=== PATIENT | male | born 1955 | race African-American/Black ===

== ENCOUNTER 2016-02-21 09:48 | Observation (INO) | payer OTHER ==
[~2016-02-21] VITALS: Ht 170.2 cm; Wt 85.2 kg
[2016-02-21] VITALS (29 sets, daily range): BP systolic 119–193; BP diastolic 66–92; PULSE 52–109; RESP 16–21; Ht 170.2 cm; Wt 85.2 kg
[2016-02-21] MEDS ORDERED: CEFAZOLIN 2 GM/50 ML (PMX) 50 ML IVPB ONE (11:00)
[2016-02-21] MEDS ORDERED: SOD CHLORIDE 0.9% 1,000 ML IV SCH (11:00)
[2016-02-21] MEDS ORDERED: AMLO-147 PO (11:54)
[2016-02-21] MEDS ORDERED: FINA5TAB4 PO (11:54)
[2016-02-21] MEDS ORDERED: LISI40TA9 PO (11:54)
[2016-02-21 12:07] LABS: BASOPHILS % 0.2 % (0.0-2.0); EOSINOPHILS # 0.1 10^3/ul (0.0-0.5); EOSINOPHILS % 0.8 % (0.0-7.0); HEMATOCRIT 44.6 % (42.0-52.0); HEMOGLOBIN 14.6 g/dl (14.0-18.0); LYMPHOCYTES # 1.5 10^3/ul (0.8-2.9); LYMPHOCYTES % 11.5 % (15.0-51.0); MEAN CORPUSCULAR HEMOGLOBIN 24.8 pg (29.0-33.0); MEAN CORPUSCULAR HGB CONC 32.9 g/dl (32.0-37.0); MEAN CORPUSCULAR VOLUME 75.6 fl (82.0-101.0); MEAN PLATELET VOLUME 9.3 fl (7.4-10.4); MONOCYTE # 1.1 10^3/ul (0.3-0.9); MONOCYTES % 8.3 % (0.0-11.0); NEUTROPHIL # 10.1 10^3/ul (1.6-7.5); NEUTROPHILS % 79.2 % (39.0-77.0); PLATELET COUNT 227 10^3/UL (140-440); RED CELL DISTRIBUTION WIDTH 15.6 % (11.5-14.5); UNCORRECTED WBC 12.7 10^3/ul (4.8-10.8); WHITE BLOOD COUNT 12.7 10^3/ul (4.8-10.8)
[2016-02-21 12:14] LABS: CONDITION 1; LH ANALYZER COMMENTS 1
[2016-02-21 12:19] LABS: INR 0.97; PROTIME 12.9 Sec (12.2-14.2)
[2016-02-21 12:20] LABS: PARTIAL THROMBOPLASTIN TIME 29.3 Sec (25.0-35.0)
[2016-02-21 12:24] LABS: CALCIUM 9.2 mg/dl (8.4-10.2); POTASSIUM 3.5 mmol/L (3.5-5.1)
--- NOTE | 2016-02-21 12:43 | RADRPT ---
PROCEDURE: Chest x-ray CLINICAL INDICATION: Preop TECHNIQUE: Chest single view COMPARISON: None FINDINGS: The heart is normal in size. The pulmonary vessels are normal in caliber. The lungs are clear. Th e costophrenic angles are sharp. The visualized bony thorax is unremarkable. IMPRESSION: No acute cardiopulmonary disease. RPTAT: HH .Arron Lance MD, Date Time Electronically viewed and signed by .Arron Lance MD, MD on 02/21/2016 12:43 .W/
[2016-02-21] MEDS ORDERED: FENTAnyl 50 MCG/ML VIAL ONE (13:32)
[2016-02-21] MEDS ORDERED: MIDAZOLAM 1 MG/ML 2 ML INJ ONE (13:32)
[2016-02-21] MEDS ORDERED: PROPOFOL 20 ML ONE (13:32)
[2016-02-21] MEDS ORDERED: BUPIVACAINE 0.25%/EPI (SDV) 30 ML INJ ONE (13:46)
[2016-02-21] MEDS ORDERED: BUPIVACAINE 0.25% (MPF) 30 ML INJ ONE (13:47)
[2016-02-21] MEDS ORDERED: LIDOCAINE 2% (SDV) 5 ML INJ ONE (14:02)
[2016-02-21] MEDS ORDERED: CEFAZOLIN 1 GM INJ ONE (14:06)
[2016-02-21] MEDS ORDERED: DEXAMETHASONE 4 MG/ML 1 ML INJ ONE (14:16)
[2016-02-21] MEDS ORDERED: ONDANSETRON 4 MG INJ ONE (14:17)
[2016-02-21] MEDS: LACTATED RINGER'S 1,000 ML IV SCH ×3 (14:32→17:20)
--- NOTE | 2016-02-21 14:57 | OPR ---
DATE OF OPERATION: 02/21/2016 INDICATION: This is a 60-year-old male with a right arm mass. He requests surgical excision. The risks, alternatives, benefits, and personnel were discussed with the patient. The patient expressed understanding and consented to the operation. PREOPERATIVE DIAGNOSIS: Right arm mass. POSTOPERATIVE DIAGNOSIS: Right arm mass. OPERATION PERFORMED: 1. Excision of right arm mass with a 10-cm size incision and 10 x 15-cm size mass. 2. Localized adjacent tissue transfer with the use of skin flaps. SURGEON: Carmelo Luna MD SPECIMEN: Right arm mass. COMPLICATIONS: None. ANESTHESIA: General. PROCEDURE: The patient was taken to the OR, prepped and draped in the usual sterile fashion. A paty gical timeout was performed. IV antibiotics were given. A transverse incision was made with a 15 b lade over the right arm mass. Dissection cautery was carried down to the mass and circumferentially excised. There was good hemostasis. Due to the large tissue defect, localized adjacent tissue tra nsfer with the use of skin flaps was performed. Multilayer closure with interrupted 3-0 Vicryl and skin torsten. Local anesthesia was injected. Dry dressings were applied. Dictated By: CARMELO WALLER/OSWALDO Conf#: [id number] DID#: [id number]
[2016-02-21 15:44] LABS: BASOPHILS % 0.2 % (0.0-2.0); EOSINOPHILS # 0.1 10^3/ul (0.0-0.5); EOSINOPHILS % 0.6 % (0.0-7.0); HEMATOCRIT 43.4 % (42.0-52.0); HEMOGLOBIN 14.1 g/dl (14.0-18.0); LYMPHOCYTES # 1.1 10^3/ul (0.8-2.9); LYMPHOCYTES % 8.1 % (15.0-51.0); MEAN CORPUSCULAR HEMOGLOBIN 24.7 pg (29.0-33.0); MEAN CORPUSCULAR HGB CONC 32.6 g/dl (32.0-37.0); MEAN CORPUSCULAR VOLUME 75.8 fl (82.0-101.0); MEAN PLATELET VOLUME 9.3 fl (7.4-10.4); MONOCYTE # 0.9 10^3/ul (0.3-0.9); MONOCYTES % 6.3 % (0.0-11.0); NEUTROPHIL # 12.1 10^3/ul (1.6-7.5); NEUTROPHILS % 84.8 % (39.0-77.0); PLATELET COUNT 226 10^3/UL (140-440); RED BLOOD COUNT 5.72 10^6/ul (4.70-6.10); RED CELL DISTRIBUTION WIDTH 15.8 % (11.5-14.5); UNCORRECTED WBC 14.3 10^3/ul (4.8-10.8); WHITE BLOOD COUNT 14.3 10^3/ul (4.8-10.8)
[2016-02-21 15:55] LABS: ALBUMIN 3.9 g/dl (3.3-4.9)
[2016-02-21 15:56] LABS: POTASSIUM 3.7 mmol/L (3.5-5.1)
[2016-02-21 15:57] LABS: BILIRUBIN,INDIRECT 0.3 mg/dl (0-1.1); BILIRUBIN,TOTAL 0.3 mg/dl (0.2-1.3)
[2016-02-21 15:58] LABS: ALBUMIN/GLOBULIN RATIO 1.34; CREATININE 0.96 mg/dl (0.61-1.24); TOTAL PROTEIN 6.8 g/dl (6.1-8.1)
[2016-02-21 15:59] LABS: CALCIUM 8.7 mg/dl (8.4-10.2)
[2016-02-21 16:13] LABS: CONDITION 1; LH ANALYZER COMMENTS 1
[2016-02-21] MEDS ORDERED: POTASSIUM CHLORIDE (SR) 20 MEQ TAB PO STA (17:47)
--- NOTE | 2016-02-21 18:54 | CONS ---
DATE OF ADMISSION: 02/21/2016 DATE OF CONSULTATION: 02/21/2016 REASON FOR CONSULTATION: PVCs in the pattern of bigeminy/cardiac arrhythmia, assess for acute coron mary syndrome. REQUESTING PHYSICIAN: Dr. Kline from the surgery department and Dr. Jl Thapa from anesthesiolo gy department as well as Dr. Lincoln internal medicine. HISTORY OF PRESENT ILLNESS: Mr. Carpenter is a very pleasant 60-year-old male with a history of hyperte nsion on lisinopril and Norvasc who presented for and underwent excision of lipoma on his right arm which was growing in size. Post procedure, I was contacted by anesthesiologist who had stated that the patient at time of induction of anesthesia had the onset of bigeminy requiring lidocaine to supp ress this arrhythmia and then after the procedure continued to have recurrent PVCs. At this time, woodrow adames denies chest pain, shortness of breath and has mild pain in his surgical site. PAST MEDICAL HISTORY: As above in HPI. The patient also has a history of BPH and prostate CA. MEDICATIONS PRIOR TO ADMISSION: 1. Lisinopril 40 mg daily. 2. Norvasc 10 mg daily. 3. Proscar 5 mg daily. MEDICATIONS CURRENTLY IN HOSPITAL: 1. Heparin 5000 subcutaneous q.8h. 2. Morphine p.r.n. 3. Lactated Ringer's. ALLERGIES: NO KNOWN DRUG ALLERGIES. SOCIAL HISTORY: Very remote tobacco. Quit greater than 20 years. No ETOH, no illicit drug use. FAMILY HISTORY: No history of sudden cardiac or early CAD. REVIEW OF SYSTEMS: As above in HPI. CONSTITUTIONAL: No fevers, chills. PULMONARY: No current shortness of breath. CARDIOVASCULAR: No current chest pain. Positive PVCs. GASTROINTESTINAL: No vomiting. GENITOURINARY: No hematuria. MUSCULOSKELETAL: Degenerative joint disease. PSYCHIATRIC: No documented psychiatric history. NEUROLOGIC: No documented history of CVA. MUSCULOSKELETAL: Lipoma, status post resection. PHYSICAL EXAMINATION: VITAL SIGNS: Temperature 97.5, blood pressure most recently 119/67, pulse 79, saturating 98% on kari m air. GENERAL: The patient is alert, awake, in no acute distress. NECK: JVP approximately 8 cm water. CHEST: Fair air movement throughout. HEART: Regular rate and rhythm. Normal S1, S2. A 1/6 systolic murmur, nondisplaced PMI. ABDOMEN: Positive bowel sounds, soft. EXTREMITIES: No edema, 1+ pulses bilaterally posterior tibial. Right upper arm covered by dressing . LABORATORY DATA: Most recently from this afternoon, sodium 147, potassium 3.7, creatinine 0.96, BUN 11, AST 20, ALT 33. White count 14.3, hemoglobin 10.1, platelet count 226. INR 1.97. IMAGING STUDIES: Chest x-ray from today revealing no acute cardiopulmonary abnormalities. ELECTROCARDIOGRAM: From today at 1202 reveals normal sinus rhythm, rate of 65, normal axis, normal intervals with lateral and inferior T-wave inversions to biphasic T-wave abnormalities. IMPRESSION: 1. Premature ventricular contractions in the pattern of bigeminy at the time of induction and there after continued with recurrent premature ventricular contractions no longer in pattern of bigeminy. 2. Abnormal electrocardiogram with inferior and lateral biphasic T-wave abnormalities. 3. History of hypertension. 4. Postop day #0, status post resection of lipoma. 5. Hypernatremia. 6. Leukocytosis. RECOMMENDATIONS: 1. At this time, would maintain the patient on telemetry monitoring to follow rhythm and rate contr ol closely. 2. Check serial EKGs to assess for any significant changes. Thus, an EKG in the morning, EKG for a ny complaints of chest pain or change in rhythm. 3. Will start the patient on low dose beta maritza for suppression of further bouts of premature ve ntricular contractions. This patient has ischemia in the setting of stress surgery. 4. Complete a rule out for myocardial infarction to ensure the patient's premature ventricular cont ractions in bigeminy are not due to any acute coronary syndrome such as acute myocardial infarction and thus check a 2D echocardiogram to further assess patient's ejection fraction, wall motion and an y major valve abnormalities. 5. We will have gentle repletion of the patient's potassium greater than 4 and will check the patie nt's magnesium and replete greater than 2. 5. Pain control with local wound care. Thank you for allowing me to take part in the care of this patient. I will continue to follow along very closely with you. Further recommendations will be made as the patient progresses through his inpatient hospital clinical course. Dictated By: ZANDRA REYES/OSWALDO Conf#: [id number] DID#: [id number] CC: DENISE LINCOLN MD; JL THAPA DO; SUMAN KLINE MD;*End*
[2016-02-21 20:29] LABS: MAGNESIUM 1.8 mg/dl (1.7-2.5)
[2016-02-21] MEDS: morphine 2 MG INJ IV PRN (20:31)
[2016-02-21 21:01] LABS: THYROID STIMULATING HORMONE 0.444 MIU/L (0.465-4.680)
[2016-02-21] MEDS: METOPROLOL 25 MG TAB PO SCH (21:51)
[2016-02-21] MEDS: HEPARIN 5,000 UNIT/0.5 ML SYG SC SCH (21:54)
[2016-02-21] MEDS: CEFAZOLIN 2 GM/50 ML (PMX) 50 ML IVPB SCH (22:49)
[2016-02-22] VITALS (13 sets, daily range): BP systolic 126–162; BP diastolic 73–94; PULSE 57–71; RESP 15–20
[2016-02-22] MEDS: LACTATED RINGER'S 1,000 ML IV SCH ×3 (00:24→20:24)
[2016-02-22] MEDS: CEFAZOLIN 2 GM/50 ML (PMX) 50 ML IVPB SCH ×2 (05:21→14:34)
[2016-02-22] MEDS: HEPARIN 5,000 UNIT/0.5 ML SYG SC SCH ×3 (05:25→21:31)
[2016-02-22 06:09] LABS: CHOL/HDL RATIO 3.7 RATIO
[2016-02-22] MEDS: METOPROLOL 25 MG TAB PO SCH ×2 (08:45→21:00)
--- NOTE | 2016-02-22 11:30 | CONS ---
Date/Time of Note Date/Time of Note DATE: 02/22/16 TIME: 11:26 Assessment/Plan Assessment/Plan Chief Complaint/Hosp Course IMPRESSION: 1. Premature ventricular contractions in the pattern of bigeminy at the time of induction and thereafter continued with recurrent premature ventricular contractions no longer in pattern of bigeminy.-improved/resolved on BB/ negative troponin x 3 2. Abnormal electrocardiogram with inferior and lateral biphasic T-wave abnormalities. 3. History of hypertension. 4. Postop day #1, status post resection of lipoma. 5. Hypernatremia. 6. Leukocytosis. Recc: -Tele -Continue BB -Check Free T4 to better assess current thyroid state -Pain control -Will f/u echo and if no sig abnl then d/c planning with outpatient f/u and stress testing with myself Problems: Consultation Date/Type/Reason Admit Date/Time Feb 21, 2016 at 14:46 Initial Consult Date 02/21/2016 Type of Consultation: Cardiology Reason for Consultation PVC/bigeminy Referring Provider: DENISE LINCOLN Exam/Review of Systems Vital Signs Vitals Vital Signs Date Time Temp Pulse Resp B/P Pulse Ox O2 Delivery O2 Flow Rate FiO2 02/22/16 11:13 97.5 62 20 162/78 99 02/22/16 04:00 Room Air Intake and Output 02/21/16 02/21/16 02/22/16 15:00 23:00 07:00 Intake Total 350 ml 500 ml Output Total 20 ml Balance 330 ml 500 ml Exam Review of Systems: CONSTITUTIONAL: No fevers, chills. PULMONARY: No sob CARDIOVASCULAR: No chest pain/palpitations GASTROINTESTINAL: No nausea/vomiting. GENITOURINARY: No hematuria/dysuria. MUSCULOSKELETAL: Mild pain at excsion site in arm PSYCHIATRIC: The patient denies depression. NEUROLOGIC: No weakness Constitutional: alert Psych: no complaints Head: normocephalic Neck: jvd (8-9 cm water), supple Respiratory: diminished breath sounds (at bases/B) Cardiovascular: regular rate and rhythm Gastrointestinal: non-tender, soft Musculoskeletal: muscle tone (normal) Extremities: edema (none) Neurological: other (No focal deficits) Results Result Diagram: 02/21/16 1520 02/21/16 1520 Results 24 hrs Laboratory Tests Test 02/21/16 11:45 02/21/16 15:20 02/21/16 19:30 02/22/16 00:23 Activated Partial Thromboplast Time 29.3 Anion Gap 15 16 Basophils # 0.0 0.0 Basophils % 0.2 0.2 Blood Morphology Comment Blood Urea Nitrogen 13 11 Calcium Level 9.2 8.7 Carbon Dioxide Level 31 29 Chloride Level 104 106 Creatinine 1.00 0.96 Eosinophils # 0.1 0.1 Eosinophils % 0.8 0.6 Glucose Level 88 85 Hematocrit 44.6 43.4 Hemoglobin 14.6 14.1 INR International Normalized Ratio 0.97 Lymphocytes # 1.5 1.1 Lymphocytes % 11.5 L 8.1 L Mean Corpuscular Hemoglobin 24.8 L 24.7 L Mean Corpuscular Hemoglobin Concent 32.9 32.6 Mean Corpuscular Volume 75.6 L 75.8 L Mean Platelet Volume 9.3 9.3 Monocytes # 1.1 H 0.9 Monocytes % 8.3 6.3 Neutrophils # 10.1 H 12.1 H Neutrophils % 79.2 H 84.8 H Nucleated Red Blood Cells # 0.0 0.0 Nucleated Red Blood Cells % 0.0 0.0 Platelet Count 227 226 Potassium Level 3.5 3.7 Prothrombin Time 12.9 Prothrombin Time Ratio 1.0 Red Blood Count 5.90 5.72 Red Cell Distribution Width 15.6 H 15.8 H Sodium Level 146 H 147 H White Blood Count 12.7 H 14.3 H Alanine Aminotransferase (ALT/SGPT) 33 Albumin 3.9 Albumin/Globulin Ratio 1.34 Alkaline Phosphatase 92 Aspartate Amino Transf (AST/SGOT) 20 Direct Bilirubin 0.00 Globulin 2.90 Indirect Bilirubin 0.3 Total Bilirubin 0.3 Total Protein 6.8 Magnesium Level 1.8 Thyroid Stimulating Hormone (TSH) 0.444 L Troponin I < 0.010 < 0.012 Test 02/22/16 05:25 Cholesterol Level 167 Cholesterol/HDL Ratio 3.7 HDL Cholesterol 45 LDL Cholesterol, Calculated 107 Triglycerides Level 74 Troponin I < 0.012 Medications Medications Current Medications Cefazolin Sodium/ Dextrose (Ancef 2 Gm/50 ml (Pmx)) 50 ml @ 100 mls/hr Q8H IVPB Last administered on 02/22/16t 05:21; Admin Dose 100 MLS/HR; Start 02/21/16 at 22:00; Stop 02/22/16 at 21:59 Morphine Sulfate 2 mg 2 mg Q2H PRN IV PAIN LEVEL 6-10 Last administered on 20:31; Admin Dose 2 MG; Start 02/21/16 at 14:30 Lactated Ringer's (Lr) 1,000 ml @ 100 mls/hr Q10H IV Last administered on 00:24; Admin Dose 100 MLS/HR; Start 02/21/16 at 14:24 Heparin Sodium (Porcine) (Heparin (5000 Units/0.5 ml)) 5,000 unit Q8 SC Last administered on 02/22/16 05:25; Admin Dose 5,000 UNIT; Start 02/21/16 at 22:00 Metoprolol Tartrate (Lopressor) 25 mg BID PO Last administered on 02/22/16 08: 45; Admin Dose 25 MG; Start 02/21/16 at 21:00 ZANDRA WILLIAMSON Feb 22, 2016 11:30
--- NOTE | 2016-02-22 12:01 | RADRPT ---
Echocardiogram Report ADDENDUM Patient Name: TERENCE GARCÍA Gender: Male Date: 1955 Study Date: 22-Feb-2016 Circus Artist: MT. Nima RDCS Location: [id number] Ref. Physician: ZANDRA BENITO Quality: Good Procedures: Transthoracic echocardiogram with complete 2D, M-Mode, and doppler examination. Indications: Premature Ventricular Complexes. 2D/M Mode Doppler Measurement Value Normal Ranges Measurement Value Normal Ranges LVIDd 2D 5.2 3.5 - 5.6 cm AV Peak Tiburcio 1.6 m/sec LVIDs 2D 2.5 2.1 - 4.1 cm AV Peak PG 10.9 mmHg LVPWd 2D 1.0 0.6 - 1.1 cm LVOT Peak Tiburcio 1.0 m/sec IVSd 2D 1.0 0.6 - 1.1 cm LVOT Peak PG 4.1 mmHg AoR Diam 2D 3.2 2.0 - 3.7 cm MV E Peak Tiburcio 0.9 m/sec EDV 2D 130.6 cm3 MV A Peak Tiburcio 0.8 m/sec ESV 2D 16.4 cm3 MV E/A 1.1 LA Dimen 2D 3.5 2.3 - 4.0 cm MV Decel Time 144 msec MV Decel Cavalier 6 MV E/A 1.1 TR Peak Tiburcio 2.2 m/sec TR Peak PG 19.7 mmHg RVSP 23.0 mmHg Findings Left Ventricle: Normal left ventricular systolic function. Normal left ventricular cavity size. Normal left ventricular wall thickness. Ejection fraction is visually estimated at 55 %. Tissue Doppler/Mitral Doppler indices are consistent with pseudonormalization with mildly elevated left atrial pressure (Stage II diastolic dysfunction). These segments of the LV are hypokinetic apical septum. Right Ventricle: Normal right ventricular size. Normal right ventricular systolic function. Left Atrium: The left atrium is normal in size. Right Atrium: The right atrium is normal in size. Mitral Valve: Mitral valve leaflets appear mildly thickened. Mild mitral annular calcification. Mild mitral valve regurgitation. Aortic Valve: No hemodynamically significant aortic stenosis by doppler. Aortic cusps appear mildly calcified. Trace aortic valve regurgitation. Tricuspid Valve: Normal appearance of the tricuspid valve. Estimated peak PA systolic pressure 23 mmHg. There is mild tricuspid regurgitation. Pericardium: Normal pericardium with no significant pericardial effusion. Aorta: Normal aortic root. IVC: Normal size and normal respiratory collapse consistent with normal right atrial pressure. Conclusions 1.Normal left ventricular systolic function. Normal left ventricular cavity size. Normal left ventricular wall thickness. Ejection fraction is visually estimated at 55 %. Tissue Doppler/Mitral Doppler indices are consistent with pseudonormalization with mildly elevated left atrial pressure (Stage II diastolic dysfunction). These segments of the LV are hypokinetic apical septum. 2.Mitral valve leaflets appear mildly thickened. Mild mitral annular calcification. Mild mitral valve regurgitation. 3.No hemodynamically significant aortic stenosis by doppler. Aortic cusps appear mildly calcified. Trace aortic valve regurgitation. 4.Normal appearance of the tricuspid valve. Estimated peak PA systolic pressure 23 mmHg. There is mild tricuspid regurgitation. Electronically Signed By: Zandra Benito 22-Feb-2016 12:12:03 -0800 [ADDENDUM] Patient Name: TERENCE GARCÍA Study Date: 22-Feb-2016 [id number]
--- NOTE | 2016-02-22 12:14 | RADRPT ---
Vent Rate: 65 bpm RR Interval: 0 msec NC Interval: 164 msec QRS Duration: 92 msec QT Interval: 416 msec QTC Interval: 432 msec P-R-T [place]: 56 - 30 - -5 degrees Normal sinus rhythm Nonspecific T wave abnormality Abnormal ECG Electronically Signed By: Wero Maddox [id number]
--- NOTE | 2016-02-22 12:23 | RADRPT ---
Vent Rate: 55 bpm RR Interval: 0 msec LA Interval: 168 msec QRS Duration: 92 msec QT Interval: 458 msec QTC Interval: 438 msec P-R-T [place]: 49 - 20 - 16 degrees Sinus bradycardia Nonspecific T wave abnormality Abnormal ECG Electronically Signed By: Wero Maddox [id number]
--- NOTE | 2016-02-22 14:52 | HP ---
Date/Time of Note Date/Time of Note DATE: 02/22/16 TIME: 14:51 Assessment/Plan VTE Prophylaxis VTE Prophylaxis Intervention: other Lines/Catheters IV [facility] Type [facility] Peripheral IV Urinary Cath still in place: No Assessment/Plan Chief Complaint/Hosp Course 1) lipoma - s/p excision 2) arrhythmia - workup per cardiology Problems: HPI/ROS Admit Date/Time Admit Date/Time Feb 21, 2016 at 14:46 Hx of Present Illness Patient is here for lipoma excision but the course was complicated by bigeminy. Patient has history of hypertension. ROS Psychological: no complaints PMH/Family/Social Past Medical History Medical History: hypertension Past Surgical History Past Surgical Hx: no surgical history Social History Smoking Status: Never smoker Exam/Review of Systems Vital Signs Vitals Vital Signs Date Time Temp Pulse Resp B/P Pulse Ox O2 Delivery O2 Flow Rate FiO2 02/22/16 12:14 67 02/22/16 11:13 97.5 20 162/78 99 02/22/16 04:00 Room Air Intake and Output 02/21/16 02/21/16 02/22/16 15:00 23:00 07:00 Intake Total 350 ml 500 ml Output Total 20 ml Balance 330 ml 500 ml Exam Head: atraumatic, normocephalic Neck: supple Respiratory: clear to auscultation Cardiovascular: regular rate and rhythm Gastrointestinal: non-tender, soft Labs Result Diagram: 02/21/16 1520 02/21/16 1520 Medications Medications Current Medications Cefazolin Sodium/ Dextrose (Ancef 2 Gm/50 ml (Pmx)) 50 ml @ 100 mls/hr Q8H IVPB Last administered on 02/22/16 05:21; Admin Dose 100 MLS/HR; Start 02/21/16 at 22:00; Stop 02/22/16 at 21:59 Morphine Sulfate 2 mg 2 mg Q2H PRN IV PAIN LEVEL 6-10 Last administered on 20:31; Admin Dose 2 MG; Start 02/21/16 at 14:30 Lactated Ringer's (Lr) 1,000 ml @ 100 mls/hr Q10H IV Last administered on 13:27; Admin Dose 100 MLS/HR; Start 02/21/16 at 14:24 Heparin Sodium (Porcine) (Heparin (5000 Units/0.5 ml)) 5,000 unit Q8 SC Last administered on 02/22/16 05:25; Admin Dose 5,000 UNIT; Start 02/21/16 at 22:00 Metoprolol Tartrate (Lopressor) 25 mg BID PO Last administered on 02/22/16 08: 45; Admin Dose 25 MG; Start 02/21/16 at 21:00 DENISE LINCOLN Feb 22, 2016 14:52
[2016-02-22] MEDS: morphine 2 MG INJ IV PRN (20:02)
[2016-02-23] VITALS (10 sets, daily range): BP systolic 126–144; BP diastolic 73–86; PULSE 57–74; RESP 18–20
[2016-02-23] MEDS: morphine 2 MG INJ IV PRN (05:06)
[2016-02-23] MEDS: HEPARIN 5,000 UNIT/0.5 ML SYG SC SCH ×2 (05:48→15:12)
[2016-02-23] MEDS: METOPROLOL 25 MG TAB PO SCH (10:23)
[2016-02-23] MEDS: LACTATED RINGER'S 1,000 ML IV SCH ×2 (10:23→16:24)
[2016-02-23] MEDS ORDERED: METO-448 PO (11:44)
--- NOTE | 2016-02-23 11:48 | DS ---
Date/Time of Note Date/Time of Note DATE: 02/23/16 TIME: 11:45 Discharge Summary Admission/Discharge Info Admit Date/Time Feb 21, 2016 at 14:46 Discharge Date/Time 02/23/16 Final Diagnosis 1) lipoma 2) cardiac arrhythmia Hx of Present Illness Patient is here for lipoma excision but the course was complicated by bigeminy. Patient has history of hypertension. Hospital Course Patient had lipoma excision. Procedure was complicated by finding of bigeminy on telemetry. Patient was evaluated by cardiology and when he was found to be stable, he was sent home. 1) lipoma - s/p excision 2) arrhythmia - workup per cardiology Home Meds Reported Medications Finasteride* (Finasteride*) 5 Mg Tablet, 1 TAB PO DAILY, #90 02/21/16 Amlodipine Besylate* (Amlodipine Besylate*) 10 Mg Tablet, 1 TAB PO DAILY, #90 02/21/16 Lisinopril* (Lisinopril*) 40 Mg Tablet, 1 TAB PO DAILY, #90 02/21/16 DENISE LINCOLN Feb 23, 2016 11:48
--- NOTE | 2016-02-23 14:03 | CONS ---
Date/Time of Note Date/Time of Note DATE: 02/23/16 TIME: 14:02 Assessment/Plan Assessment/Plan Additional Assessment/Plan 1. Premature ventricular contractions in the pattern of bigeminy at the time of induction and thereafter continued with recurrent premature ventricular contractions no longer in pattern of bigeminy.-improved/resolved on BB/ negative troponin x 3 - no significant ectopy now. 2. Abnormal electrocardiogram with inferior and lateral biphasic T-wave abnormalities. 3. History of hypertension - better controlled now. 4. Postop day #1, status post resection of lipoma. Tolerated procedure well. 5. Hypernatremia. 6. Leukocytosis. Consultation Date/Type/Reason Admit Date/Time Feb 21, 2016 at 14:46 Initial Consult Date Type of Consultation: Cardiology Referring Provider: DENISE LINCOLN 24 HR Interval Summary Free Text/Dictation No acute cahnge - did well post op. ROS: No fever, no chills, no nausea, no vomiting, no diarrhea/constipation No recent weight changes No chest pain, no PND, no orthopnea No dizziness, blurred vision No thirst, no heat or cold intolerance Exam/Review of Systems Vital Signs Vitals Vital Signs Date Time Temp Pulse Resp B/P Pulse Ox O2 Delivery O2 Flow Rate FiO2 02/23/16 12:06 59 02/23/16 11:55 98.0 19 141/86 100 02/22/16 04:00 Room Air Intake and Output 02/22/16 02/22/16 02/23/16 15:00 23:00 07:00 Intake Total 600 ml Balance 600 ml Exam General: WN/WD/NAD, AOx 3 HEENT: Unicetric/atraumatic/EOMI (follow commands) NECK: JVD elevated, no thyromegaly Lymph: no lymphadenopathy HEART: regular with no S3, II/ systolic murmur at apex LUNGS: Coarse sounds ABD: soft, NT, ND, +BS : Intact Neuro: non focal SKIN: chronic changes EXT: trace edema Results Result Diagram: 02/21/16 1520 02/21/16 1520 Medications Medications Current Medications Morphine Sulfate 2 mg 2 mg Q2H PRN IV PAIN LEVEL 6-10 Last administered on t 05:06; Admin Dose 2 MG; Start 02/21/16 at 14:30 Lactated Ringer's (Lr) 1,000 ml @ 100 mls/hr Q10H IV Last administered on 10:23; Admin Dose 100 MLS/HR; Start 02/21/16 at 14:24 Heparin Sodium (Porcine) (Heparin (5000 Units/0.5 ml)) 5,000 unit Q8 SC Last administered on 02/23/16 05:48; Admin Dose 5,000 UNIT; Start 02/21/16 at 22:00 Metoprolol Tartrate (Lopressor) 25 mg BID PO Last administered on 02/23/16 10: 23; Admin Dose 25 MG; Start 02/21/16 at 21:00 DOYLE SYKES MD Feb 23, 2016 14:03
== END 2016-02-23 19:27 | disposition home or self-care (01) ==
LOC: SDS 09:48 → TEL 14:46 → SDS 14:46
PROVIDERS: ADMIT Internal Medicine; ATTEND Surgery
DX: I49.3 Ventricular premature depolarization (principal); D17.21 Benign lipomatous neoplasm of skin and subcutaneous tissue of right arm; E87.0 Hyperosmolality and hypernatremia; I10 Essential (primary) hypertension; R94.39 Abnormal result of other cardiovascular function study
CPT/HCPCS: 14020; 71010; 80048; 80053; 80061; 83735; 84439; 84443; 84484; 85025; 85610; 85730; 88307; 93005; 93306; J0690; J1100; J1644; J2250; J2270; J2405; J3010; J7120; Z7500; Z7512; Z7610; G0378

== ENCOUNTER 2016-03-02 11:51 | Emergency (ER) | payer OTHER ==
[~2016-03-02] VITALS: Wt 81.8 kg
[~2016-03-02 11:51] MED LIST: AMLO-147 PO; FINA5TAB4 PO; LISI40TA9 PO; METO-448 PO
--- NOTE | 2016-03-02 14:13 | ERD ---
ER Documentation Chief Complaint Date/Time DATE: 03/02/16 TIME: 14:12 Chief Complaint S/P SX, PAIN AT SITE. HPI This patient is a 60 yo male with history of recent operation to his R shoulder presenting to the emergency department for wound check fo the area. He states for the past 2 days he has had intermittent pain in the area of the surgical site with mild swelling. He denies any redness, fevers, discharge, nausea, vomiting, or other sxs at this time. ROS All systems reviewed and are negative except as per history of present illness. Medications Home Meds Active Scripts Naproxen* (Naprosyn*) 500 Mg Tablet, 500 MG PO BID Y for PAIN AND/OR INFLAMMATION, #20 TAB Prov:POOJA HERRERA PA-C 03/02/16 Metoprolol Tartrate* (Lopressor*) 25 Mg Tab, 25 MG PO BID for 30 Days, #60 TAB Prov:DENISE LINCOLN Y 02/23/16 Reported Medications Finasteride* (Finasteride*) 5 Mg Tablet, 1 TAB PO DAILY, #90 02/21/16 Amlodipine Besylate* (Amlodipine Besylate*) 10 Mg Tablet, 1 TAB PO DAILY, #90 02/21/16 Lisinopril* (Lisinopril*) 40 Mg Tablet, 1 TAB PO DAILY, #90 02/21/16 Allergies Allergies: Coded Allergies: No Known Drug Allergies (Verified Allergy, Unknown, 02/21/16) PMhx/Soc History of Surgery: No (right shoulder lipoma removal) Anesthesia Reaction: No Hx Neurological Disorder: No Hx Respiratory Disorders: No Hx Psychiatric Problems: No Hx Miscellaneous Medical Probl: No Hx Alcohol Use: No Hx Substance Use: No Hx Tobacco Use: No Smoking Status: Never smoker FmHx non contributory for chief complaint. Physical Exam Vitals Vital Signs Date Time Temp Pulse Resp B/P Pulse Ox O2 Delivery O2 Flow Rate FiO2 03/02/16 11:52 97.6 76 20 147/85 98 Physical Exam Const: The patine it non-ill appearing in no acute distress. Head: Atraumatic Eyes: Normal Conjunctiva ENT: Normal External Ears, Nose and Mouth. Neck: Full range of motion, No meningismus. Resp: Clear to auscultation bilaterally Cardio: Regular rate and rhythm, no murmurs Abd: Soft, non tender, non distended. Normal bowel sounds Skin: There is a well healing surgical incision to the R lateral shoulder with torsten in place. There is no warmth, active bleeding, erythema, or discharge from the area. Back: No midline or flank tenderness Ext: No cyanosis, or edema Neur: Awake and alert Psych: Normal Mood and Affect Procedures/MDM 60 yo male with history of recent shoulder surgery presenting for wound check. On exam there are no signs of infection at the surgical site. [place] are in place. The patient is requesting pain relief medication that he can take at work that will not make him drowsy. He has been discharged home with a prescription for naproxen and was advised to FU with the surgeon at his next scheduled appointment for further evaluation/treatment/staple removal. The patient's questions/concerns have been addressed and he agrees with the plan. He is stable for discharge at this time. Departure Diagnosis: Primary Impression: Encounter for wound re-check Condition: Stable Patient Instructions: Post Op Wound Check, Pain, Wound Care Additional Instructions: Follow up with your surgeon, as scheduled. Return to the emergency department right away if any signs of infection occur. This may include but is not limited to bleeding, discharge, fevers, or redness around the area. Follow up with your primary care doctor within 1 week. POOJA HERRERA PA-C Mar 02, 2016 14:13
[2016-03-02] MEDS ORDERED: NAPR-260 PO (14:14)
== END 2016-03-02 14:24 | disposition home or self-care (01) ==
LOC: FTE 11:51
DX: G89.18 Other acute postprocedural pain (principal); I10 Essential (primary) hypertension; Z48.01 Encounter for change or removal of surgical wound dressing
CPT/HCPCS: 99283